=== PATIENT | female | born 1985 | race Caucasian/White ===

== ENCOUNTER 2016-05-24 03:19 | Inpatient (IN) | payer BC ==
[~2016-05-24] VITALS: Ht 167.6 cm; Wt 98.9 kg
[2016-05-24] VITALS (11 sets, daily range): BP systolic 109–137; BP diastolic 63–79
[~2016-05-24 03:19] MED LIST: ENDOCET 5-3251 EACH PO; IBUPROFEN800 MG PO; MOTRIN800 MG PO; NATALCARE RX1 TABLE1 PO; PERCOCET 5/31 TABLET PO
[2016-05-24 04:39] LABS: EOSINOPHIL (%) 0.4 % (0-5); EOSINOPHIL COUNT 0.1 K/uL (0-0.3); HEMATOCRIT 40.7 % (36.0-46.0); IMMATURE GRANULOCYTE (%) 1.5 % (0.0-0.7); IMMATURE GRANULOCYTE COUNT 0.3 K/uL; INSTRUMENT ABS NEUTROPHIL CT 12.9 K/uL; LYMPHOCYTE COUNT 2.2 K/uL (1.0-2.8); MCH 27.5 PG (29.0-34.0); MCHC 31.9 G/DL (30.0-36.0); MCV 86.2 FL (83-99); MEAN PLAT.VOLUME 12.7 uM^3 (9.5-12.4); MONOCYTE (%) 6.2 % (3-12); NEUTROPHIL (%) 78.3 % (45-76); NEUTROPHIL COUNT 12.9 K/uL (1.8-6.4); PLATELET COUNT 161 K/uL (156-360); RBC DIS.WIDTH-CV 14.6 % (11.8-14.6); RBC DIS.WIDTH-SD 46.3 % (39-53); RED BLOOD COUNT 4.72 M/uL (3.80-5.20); WHITE BLOOD COUNT 16.5 K/uL (4.1-10.2)
[2016-05-24] MEDS ORDERED: IBUPROFEN800 MG PO (05:58)
[2016-05-25 07:28] VITALS: BP 119/71
[2016-05-25 11:02] VITALS: BP 113/69
[2016-05-25 23:34] VITALS: BP 115/75
[2016-05-26 07:40] VITALS: BP 119/75
== END 2016-05-26 11:02 | disposition home or self-care (01) | DRG 775 ==
LOC: LDRP-OP 03:19 → 2WEST 03:20 → LDRP-OP 05-26 02:14 → 2WEST 05-26 11:02
PROVIDERS: Midwife
PROC: 10E0XZZ Delivery of Products of Conception, External Approach (ICD-10-PCS; principal; 2016-05-24)
DX: O76 Abnormality in fetal heart rate and rhythm complicating labor and delivery (principal); O99.824 Streptococcus B carrier state complicating childbirth; O99.214 Obesity complicating childbirth; E66.9 Obesity, unspecified; Z3A.39 39 weeks gestation of pregnancy; Z37.0 Single live birth
CPT/HCPCS: 85025; J0290; J7050; J7120